=== PATIENT | female | born 1975 | race Two or more races ===

== ENCOUNTER 2017-11-07 15:54 | Emergency (ER) | payer SELFPAY ==
[2017-11-07] MEDS: IBUPROFEN 800 MG TABLET. PO ×2 (17:24)
[2017-11-07 18:08] LABS: INFLUENZA A PATIENT POSITIVE (NEGATIVE); INFLUENZA B PATIENT NEGATIVE (NEGATIVE); OBC FLU VALID
== END 2017-11-07 18:35 | disposition home or self-care (01) ==
LOC: ER 15:54
DX: J09.X2 Influenza due to identified novel influenza A virus with other respiratory manifestations (principal)
CPT/HCPCS: 87804; 87804-59; 99284